=== PATIENT | male | born 1950 | race Caucasian/White ===

== ENCOUNTER 2022-06-28 00:48 | Emergency (ER) | payer MEDICARE, SELFPAY ==
[2022-06-28 00:55] VITALS: BP 116/96; RESP 18; TEMP 36.2; O2SAT 96; BMI 18.4
--- NOTE | 2022-06-28 01:21 | XRR_ITS ---
PROCEDURE INFORMATION: Exam: XR Left Toe(s) Exam date and time: 06/28/2022 1:45 AM Age: 72 years old Clinical indication: Other: Ulceration; Additional info: Great toe pain, ulceration TECHNIQUE: Imaging protocol: Radiologic exam of the left toes. Views: Minimum 2 views. COMPARISON: No relevant prior studies available. FINDINGS: Bones/joints: Lytic bone destruction involving the distal medial aspect of the great toe distal phalanx possible nonunion pathologic fracture. Soft tissues: Soft tissue swelling over the great toe. No obvious soft tissue emphysema. XR/XR toe LT min 2V 72002 IMPRESSION: 1. Soft tissue swelling over the great toe. 2. Lytic bone destruction involving the distal medial aspect of the great toe distal phalanx possible nonunion pathologic fracture. 3. No obvious soft tissue emphysema.
--- NOTE | 2022-06-28 01:21 | XRR_ITS ---
PROCEDURE INFORMATION: Exam: XR Right Toe(s) Exam date and time: 06/28/2022 1:43 AM Age: 72 years old Clinical indication: Other: Ulceration; Additional info: Great toe pain, ulceration TECHNIQUE: Imaging protocol: Radiologic exam of the right toes. Views: Minimum 2 views. COMPARISON: No relevant prior studies available. FINDINGS: Bones/joints: Erosion of the dorsal, medial and distal cortex of the great toe distal phalanx consistent with osteomyelitis. Soft tissues: Prominent soft tissue swelling over the distal great toe. Other findings: Laceration/ulceration over the medial dorsal aspect of the great toe distal phalanx. XR/XR toe RT min 2V [id number] IMPRESSION: 1. Laceration/ulceration over the medial dorsal aspect of the great toe distal phalanx. 2. Prominent soft tissue swelling over the distal great toe. 3. Erosion of the dorsal, medial and distal cortex of the great toe distal phalanx consistent with osteomyelitis.
[2022-06-28] MEDS: levoFLOXacin 500 mg Tablet PO (02:29)
--- NOTE | 2022-06-28 15:06 | ED_ITS ---
HPI - Wound/Laceration General: Chief Complaint: Wound/Laceration Stated Complaint: TOE PAIN Time Seen by Provider: 06/28/22 00:56 Source: patient History of Present Illness: 72 year old intoxicated male presenting by ambulance at 1:00 AM for bilateral great toe pain that has been going on for a few months. He has ulcerations to the tips and dorsum of the great toes that are red and irritated, And painful he says. He says that he has been trying to ?take care of them? himself, but they're not healing. He denies fever. He denies vomiting. Onset (ago): month(s) Extremity Location: Bilateral: foot Place: home Context: other Associated symptoms: Reports pain; Denies fever(s), inability to move, nausea or vomiting Review of Systems Const: Denies: fever(s) GI: Denies: nausea or vomiting Skin/Breast: Reports: rash, erythema, skin pain, skin tenderness and non- healing lesions Physical Exam Const: COMMON NORMALS: no acute distress GENERAL APPEARANCE: disheveled, lethargic and odor of alcohol detected NUTRITIONAL APPEARANCE: thin ORIENTATION/CONSCIOUSNESS: Yes lethargic HENMT: COMMON NORMALS: normocephalic, atraumatic and Normal external nose present HEAD & SCALP: normocephalic and atraumatic NOSE: Normal external nose present Eye: COMMON NORMALS: Equal, round and reactive pupils present and EOMs intact bilaterally PUPIL: Yes Equal, round and reactive pupils present Chest: CHEST: Yes Symmetrical chest wall rise Resp: COMMON NORMALS: normal respiratory effort and No retractions Cardio: COMMON NORMALS: regular rate and regular rhythm RATE: regular rate RHYTHM: regular rhythm Extremity: NARRATIVE EXTREMITY EXAM: Examination of the bilateral feet reveals bilateral great toe tip and dorsum ulceration with some skin loss. Escar is present. The toes are red and tender and mildly swollen. No streaking erythema. Neuro: SENSORIUM/ORIENTATION: Yes lethargic Course Vital Signs: Vital signs: Vital Signs Temperature 97.1 F L 06/28/22 00:55 Respiratory Rate 18 06/28/22 00:55 Blood Pressure 116/96 06/28/22 00:55 Pulse Oximetry 96 06/28/22 00:55 Oxygen Delivery Me thod 06/28/22 00:55 MDM - Wound/Laceration Medical Decision Making Medically, the patient is stable. his vitals are normal. he is afebrile. There is no sign of lymphangitis on exam. X-ray shows some bone loss of the distal phalanx, likely osteomyelitis. We will cover him on antibiotics. We will ask case management to make an appointment with Podiatry for him for further management, as he may need debridement in the OR. He is to return for fever or worsening redness or streaking. Lab Data Radiology Impressions Toe X-Ray 06/28/22 01:21 IMPRESSION: 1. Soft tissue swelling over the great toe. 2. Lytic bone destruction involving the distal medial aspect of the great toe distal phalanx possible nonunion pathologic fracture. 3. No obvious soft tissue emphysema. Discharge Plan Discharge Patient Disposition: Home Clinical Impression: Osteomyelitis of toe of left foot, Osteomyelitis of toe of right foot Condition: Stable Prescriptions: New levofloxacin 500 mg tablet 500 mg PO DAILY 10 Days Qty: 10 0RF Discharge Orders: Discharge ED (Routine); Ordered 06/28/22 Ordered By: Wes Tate Patient Instructions: Osteomyelitis (ED) Activity Restrictions/Additional Instructions: Case management will make an appointment with podiatry for you for follow up as further treatment will likely be needed. Coding Level of Care Code ED [employer]er for Margoth Garza
--- NOTE | 2022-06-29 10:15 | DCPLANNER ---
Addendum entered by Omayra Nascimento 07/03/22 08:15: solution manager received the following message from the ortho clinic regarding follow up appointment: Attempted to call patient again today and no luck. Thank you. Addendum entered by Omayra Nascimento 06/30/22 10:54: solution manager received the following message from the ortho clinic regarding follow up appointment: Number in chart is not in service//called Friend on [employer] to discuss and there is not a VM set up. I will try again tomorrow to get them scheduled with Dr. Victor Original Note: solution manager had message to schedule a follow up appointment for patient with podiatry. solution manager sent patients information to the front office staff at podiatry. Patients information will be printed and reviewed. Clinic will call patient with appointment information.
--- NOTE | 2022-07-08 10:03 | DCPLANNER ---
sr. payroll manager called patient due to no primary care physician - called [phone] - this number is not in service
== END 2022-06-28 02:30 | disposition home or self-care (01) ==
PROVIDERS: Emergency Provider Emergency Medicine
DX: M86.8X7 Other osteomyelitis, ankle and foot (principal)
CPT/HCPCS: 73660; 99283